=== PATIENT | female | born 1945 | race Caucasian/White ===

== ENCOUNTER 2017-11-03 10:36 | Emergency (ER) | payer OTHER ==
[~2017-11-03] VITALS: Ht 165.1 cm; Wt 72.0 kg
[~2017-11-03 10:36] MED LIST: ASPI-516 CHEW; BUPR300T PO; EZET10 PO; FLUO10CA5 PO; GABA400C5 PO; GLUC100013 PO; HYDR25TA5 PO; KPHOS250 PO; MULT-136 PO; NAPR250T4 PO; NITR1CAP37 PO; POTA10TA2 PO; VITA250C3 CHEW
[2017-11-03 10:42] VITALS: BP 137/89; PULSE 73; RESP 16; TEMP 98; O2SAT 96
== END 2017-11-03 11:15 | disposition left against medical advice (07) ==
LOC: PHED 10:36
DX: R11.2 Nausea with vomiting, unspecified (principal); R05 Cough; Z53.21 Procedure and treatment not carried out due to patient leaving prior to being seen by health care provider
CPT/HCPCS: 99281